=== PATIENT | female | born 1935 | race Caucasian/White ===

== ENCOUNTER 2016-10-14 05:29 | Day surgery (SDC) | payer MEDICARE, OTHER ==
[~2016-10-14 05:29] MED LIST: ALENDRONATE SOD70 M2 PO; ASPIRIN81 M1 PO; CALCIUM PO; CELEXA40 M2 PO; COLACE100 M1 PO; FEROSUL325 M1 PO; LIPITOR80 M1 PO; MILK OF MAGNESIA PO; MIRALAX17 G2 PO; NORCO 5-325 TA1 EACH PO; OMEPRAZOLE20 M3 PO; PRESERVISION L1 EACH PO; SYMBICORT 160-1 PUFF INH; VITAMIN D32000 UNI2 PO; XALATAN2.5 M1 EACH EYE
[2016-10-14 06:19] LABS: BASO % 0.2 % (0-2); EOS % 0.9 % (0-7); EOSINOPHIL ABSOLUTE COUNT 0.1 tho/cmm (0.0-0.7); HCT-HEMATOCRIT 35.2 % (34.0-49.0); HGB-HEMOGLOBIN 10.6 gm/dl (12.0-15.5); IMMATURE GRANULOCYTES ABSOLUTE 0.01 tho/cmm (0-0.03); IMMATURE GRANULOCYTES PERCENT 0.2 % (0-0.3); LYMPH % 28.7 % (20-45); LYMPH ABSOLUTE COUNT 1.7 tho/cmm (0.8-4.5); MCH (MEAN CORPUSCULAR HGB) 23.4 pg (28.0-32.0); MCHC MEAN CORPUSCULAR HGB CONC 30.1 % (32.0-36.0); MCV (MEAN CELL VOLUME) 77.7 fl (82.0-96.0); MEAN PLATELET VOLUME 8.7 cmc (9.4-12.4); MONO % 11.4 % (0-12); MONOCYTE ABSOLUTE COUNT 0.7 tho/cmm (0.0-1.2); NEUTROPHIL ABSOLUTE COUNT 3.4 tho/cmm (1.6-8.0); NEUTROPHIL-AUTOMATED 3.4 tho/cmm (1.6-8.0); NEUTROPHILS % 58.6 % (40-80); PLATELET COUNT 245 tho/cmm (150-450); PROTHROMBIN TIME 11.3 SECONDS (9.0-13.6); RED BLOOD COUNT 4.53 mil/cmm (4.00-5.20); RED CELL DISTRIBUTION WIDTH 18.6 % (12.4-16.4); WHITE BLOOD COUNT 5.8 tho/cmm (4.0-10.0)
[2016-10-14 06:27] LABS: ANION GAP 12 mmol/L (0-20); BLOOD UREA NITROGEN 19 mg/dl (6-24); CALCIUM 8.3 mg/dl (8.5-10.5); CARBON DIOXIDE-VENOUS 28 mmol/L (22-32); CHLORIDE 105 mmol/l (96-110); GLUCOSE 98 mg/dL (70-110); POTASSIUM 4.2 mmol/L (3.7-5.1); SODIUM 141 mmol/L (135-145); eGFR VALUE FOR BLACK 70 mL/Min
== END 2016-10-14 13:50 ==
LOC: RADSP 05:29 → SHSB 05:30
PROVIDERS: Surgery Vascular Surgery
PROC: 047C3ZZ Dilation of Right Common Iliac Artery, Percutaneous Approach (ICD-10-PCS; principal; 2016-10-14)
PROC: B41DZZZ Fluoroscopy of Aorta and Bilateral Lower Extremity Arteries (ICD-10-PCS; 2016-10-14)
DX: I70.213 Atherosclerosis of native arteries of extremities with intermittent claudication, bilateral legs (principal); Z79.82 Long term (current) use of aspirin; Z79.83 Long term (current) use of bisphosphonates; Z79.899 Other long term (current) drug therapy; Z87.891 Personal history of nicotine dependence; Z98.49 Cataract extraction status, unspecified eye; Z96.1 Presence of intraocular lens; Z98.890 Other specified postprocedural states
CPT/HCPCS: C1760; C1769; C1876; J1644; J2250; J3010; J7030; Q9967